=== PATIENT | male | born 1985 | race Caucasian/White ===

== ENCOUNTER 2022-04-16 16:43 | Emergency (ER) | payer BC, SELFPAY ==
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
[2022-04-16 17:06] VITALS: BP 152/96; PULSE 109; RESP 19; TEMP 36.8; O2SAT 96; BMI 29.0
[2022-04-16 18:04] VITALS: BP 135/80; PULSE 90; RESP 19; TEMP 36.8
== END 2022-04-16 18:16 | disposition home or self-care (01) ==
PROVIDERS: Emergency Provider Nurse Practitioner Family
DX: L03.115 Cellulitis of right lower limb (principal); L81.8 Other specified disorders of pigmentation
CPT/HCPCS: 87070; 87077; 87186; 87205; 99212; G0463; J0696

== ENCOUNTER 2022-09-13 12:18 | Emergency (ER) | payer BC, SELFPAY ==
[2022-09-13 12:19] VITALS: BP 143/70; PULSE 85; RESP 16; TEMP 37.1; O2SAT 100; BMI 28.5
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
[2022-09-13 13:54] LABS: Basophils # 0.1 K/mm3 (0-0.2); Basophils % 1.6 % (0.1-2.0); Eosinophils % 0.4 % (0.1-12.0); Hematocrit 47.3 % (42.0-52.0); Hemoglobin 15.3 g/dL (14.1-18.0); Lymphocytes # 1.6 K/mm3 (0.7-4.5); Lymphocytes % 27.1 % (10-50); Mean Corpuscular HGB Conc 32.4 g/dL (31.8-35.4); Mean Corpuscular Hemoglobin 28.9 pg (27.0-31.2); Mean Corpuscular Volume 89.1 fl (80-94); Mean Platelet Volume 9.4 fl (7.4-10.4); Monocytes # 0.5 K/mm3 (0.1-1.0); Monocytes % 7.8 % (1.7-9.3); Neutrophils # 3.6 K/mm3 (1.8-7.8); Neutrophils % 63.1 % (37.0-80.0); Platelet Count 194 K/mm3 (142-424); Red Blood Count 5.31 M/mm3 (4.60-6.20); Red Cell Distribution Width 13.1 % (11.5-17.5); White Blood Count 5.7 K/mm3 (4.8-10.8)
[2022-09-13 13:56] LABS: Chloride 95 mmol/L (98-107); Potassium 3.5 mmoL/L (3.5-5.1); Sodium 135 mmol/L (136-145)
[2022-09-13 13:58] LABS: Alanine Aminotransferase 39 U/L (12-78); Aspartate Amino Transferase 31 U/L (17-59); Blood Urea Nitrogen 9 mg/dl (9-20); Creatinine Clearance Estimated 217 mL/min (50-200); Estimated Glomerular Filt Rate 137 ml/min (>60); GFR (African American) 166 ML/MIN (>60)
[2022-09-13 13:59] LABS: Albumin Level 4.2 g/dl (3.5-5.0); Albumin/Globulin Ratio 1.2 (1.1-1.8); Alkaline Phosphatase 84 U/L (38-126); Anion Gap 14.5 mEq/L (5-15); Bilirubin,Total 0.8 mg/dl (0.2-1.3); Carbon Dioxide 29 mmol/L (22.0-30.0); Globulin 3.4 g/dL (1.3-3.2); Glucose 286 mg/dl (74-100); Lipase 72 U/L (23-300); Total Protein,Serum 7.6 g/dl (6.3-8.2)
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
--- NOTE | 2022-09-13 14:25 | ECG_ITS ---
APPROVED REPORT Exam: Resting ECG HR:96 bpm ECG Measurements Heart Rate 96 AXES AK 146 P 44 QRSd 104 QRS 30 QT 343 T 50 QTc 397 Conclusion SINUS RHYTHM POSSIBLE LEFT ATRIAL ENLARGEMENT [-0.1mV P-WAVE IN V1/V2] POSSIBLE RIGHT VENTRICULAR CONDUCTION DELAY [RSR (QR) IN V1/V2] MODERATE T-WAVE ABNORMALITY, CONSIDER LATERAL ISCHEMIA [-0.1+ mV T-WAVE IN I/aVL/V5/V6] ABNORMAL ECG UNCONFIRMED REPORT Electronically signed by : Sal Boyce MD 09/14/2022 21:12:25
--- NOTE | 2022-09-13 14:39 | PC.NURSE ---
Updated pt on POC. No new needs at this time
[2022-09-13 14:40] VITALS: BP 126/83; PULSE 84; RESP 16; O2SAT 98
[2022-09-13 15:42] VITALS: BP 124/70; PULSE 84; RESP 16; TEMP 37; O2SAT 98
== END 2022-09-13 15:43 | disposition home or self-care (01) ==
PROVIDERS: Emergency Provider Student in an Organized Health Care Education/Training Program
DX: R55 Syncope and collapse (principal); M54.50 Low back pain, unspecified; R05.9 Cough, unspecified; M62.838 Other muscle spasm; Z79.4 Long term (current) use of insulin; Z79.899 Other long term (current) drug therapy; V49.40XA Driver injured in collision with unspecified motor vehicles in traffic accident, initial encounter
CPT/HCPCS: 70450; 71045; 72125; 72131; 80053; 83690; 85025; 93005; 96361; 96374; 99285

== ENCOUNTER → 2022-09-17 12:25 | Outpatient (CLI) | payer BC, SELFPAY | LOC: LAB 12:26 → LAB.DROPOF 12:28 | PROVIDERS: PCP Family Medicine; Visit Provider Family Medicine | DX: L92.3 Foreign body granuloma of the skin and subcutaneous tissue (principal); B95.7 Other staphylococcus as the cause of diseases classified elsewhere | CPT/HCPCS: 87070; 87077; 87186; 87205 ==

== ENCOUNTER 2025-03-08 09:26 | Outpatient (CLI) | payer BC, SELFPAY ==
[2025-03-08 09:49] VITALS: BMI 30.3
[2025-03-08 09:58] LABS: Basophils # 0.1 K/mm3 (0-0.2); Basophils % 0.7 % (0.1-2.0); Eosinophils # 0.1 Kmm3 (0.0-0.4); Eosinophils % 1.9 % (0.1-12.0); Hemoglobin 16.6 g/dL (14.1-18.0); Lymphocytes % 28.6 % (10-50); Mean Corpuscular HGB Conc 34.6 g/dL (31.8-35.4); Mean Corpuscular Hemoglobin 29.7 pg (27.0-31.2); Mean Corpuscular Volume 85.9 fl (80-94); Mean Platelet Volume 10.9 fl (7.4-10.4); Monocytes # 0.5 K/mm3 (0.1-1.0); Monocytes % 7.4 % (1.7-9.3); Neutrophils # 4.3 K/mm3 (1.8-7.8); Neutrophils % 60.8 % (37.0-80.0); Nucleated Red Blood Cells # 0 10^3/uL; Nucleated Red Blood Cells % 0 %; Platelet Count 209 K/mm3 (142-424); Red Blood Count 5.59 M/mm3 (4.60-6.20); Red Cell Distribution Width-SD 37.6 fL
[2025-03-08 10:06] LABS: Chloride 102 mmol/L (98-107)
[2025-03-08 10:07] LABS: Potassium 3.9 mmoL/L (3.5-5.1); Sodium 137 mmol/L (136-145)
[2025-03-08 10:09] LABS: Blood Urea Nitrogen 10 mg/dl (9-20); Creatinine Clearance Estimated 273 mL/min (50-200); Estimated Glomerular Filt Rate 162 ml/min (>60); GFR (African American) 196 ML/MIN (>60)
[2025-03-08 10:10] LABS: Anion Gap 11.9 mEq/L (5-15); Calcium 9.1 mg/dl (8.4-10.2); Carbon Dioxide 27 mmol/L (22.0-30.0); Glucose 275 mg/dl (74-100)
== END 2025-03-08 23:59 | disposition home or self-care (01) ==
LOC: PREOP 09:27
PROVIDERS: Visit Provider Student in an Organized Health Care Education/Training Program
DX: Z01.812 Encounter for preprocedural laboratory examination (principal)
CPT/HCPCS: 80048; 85025

== ENCOUNTER 2025-03-13 08:17 | Day surgery (SDC) | payer BC, SELFPAY ==
[2025-03-08 10:34] VITALS: BMI 30.3
[2025-03-13 08:57] VITALS: BP 148/106; PULSE 98; RESP 18; TEMP 36.6; O2SAT 98
[2025-03-13] MEDS: LIDOCAINE 1% 20ML MDV 20 ML (09:57)
[2025-03-13] MEDS: LIDOCAINE 1% W/EPI 1:100,000 20ML VIAL 20 ML (09:57)
[2025-03-13 10:32] VITALS: BP 145/90; PULSE 87; RESP 18; TEMP 36.6; O2SAT 98
--- NOTE | 2025-03-13 10:34 | P.OP_ITS ---
Date of procedure: 03/13/25 Pre-op Diagnosis:: left ear keloid Post-op Diagnosis:: same Procedure performed:: excision of left ear keloid with intermediate closure 1.5 cm Surgeon:: Heber Munson MD Anesthesia: local Estimated blood loss (mL): 2 Operative findings:: left ear keloid Operative note:: The patient was brought to the OR, laid in the supine position, and his left ear was prepped and draped in the usual fashion. Lidocaine with epinephrine 1- 100,000 was injected underneath the left helix keloid. Using a 15 blade the keloid was excised at its base. The keloid was approximately 1-1/2 cm in length and oriented similar to a number 7 with the long axis running vertically along the edge of the helix and a small axis coming horizontally onto the anterior aspect of the helix. Once it was excised it was sent for permanent pathology. I then undermined the skin in the plane superficial to the perichondrium of the helix. I was able to mobilize the skin edges back together. Monocryl sutures were used for the deep layer. Interrupted nylons were used to reapproximate the mucosal edges. There was minimal tension on the wound. Antibiotic ointment was then applied. Condition: stable Disposition: same day Complications:: none
[2025-03-13 10:50] VITALS: BP 141/91; PULSE 84; RESP 18; TEMP 36.6; O2SAT 98
[2025-03-13 17:31] LABS: POC Glucose,Bedside 345 (70-110)
== END 2025-03-13 10:50 | disposition home or self-care (01) ==
PROVIDERS: Visit Provider Student in an Organized Health Care Education/Training Program
PROC: (CPT 11442; principal; 2025-03-13 10:00)
DX: L91.0 Hypertrophic scar (principal)
CPT/HCPCS: 11442; 12051; 82962